=== PATIENT | female | born 1955 | race Caucasian/White ===

== ENCOUNTER 2023-12-06 05:29 | Day surgery (SDC) | payer BC ==
[2023-12-03 13:34] VITALS: BMI 30.7
[2023-12-06] MEDS ORDERED: Bupivacaine PF 0.5% 30 ML VIAL ONE (06:43)
[2023-12-06] MEDS ORDERED: EPINEPHrine 1 MG/ML VIAL ONE (06:43)
[2023-12-06] MEDS ORDERED: Midazolam HCl 2 mg/2 ml Vial ONE (06:52)
[2023-12-06] MEDS ORDERED: PROPOFOL 20 ML ONE (06:52)
[2023-12-06] MEDS ORDERED: Ondansetron PF 4 MG/2 ML Vial ONE (06:52)
[2023-12-06] MEDS ORDERED: Dexamethasone 4 mg/ml Vial ONE (06:52)
[2023-12-06] MEDS ORDERED: Lidocaine 2% PF 5 ML VIAL ONE (06:52)
[2023-12-06] MEDS ORDERED: fentaNYL 50 mcg/mL 1 mL Vial ONE (06:52)
[2023-12-06] MEDS ORDERED: CEFAZOLIN 2 GM VIAL ONE (07:03)
[2023-12-06] MEDS ORDERED: Acetaminophen 500 MG TAB ONE ×2 (07:14→08:16)
[2023-12-06] MEDS ORDERED: Hydrocortisone Sod Succ/PF 100 mg/2 ml Vial ONE (07:39)
[2023-12-06] MEDS ORDERED: PHENYLEPHRINE-NS 100 MCG/ML 10 ML SYRINGE ONE (07:47)
[2023-12-06] MEDS ORDERED: HYDROcodone/Acetaminophen 5/325 mg Tablet PO PRN (08:02)
[2023-12-06] MEDS ORDERED: Acetaminophen 325 MG TAB PO PRN (08:02)
== END 2023-12-06 08:55 | disposition home or self-care (01) ==
LOC: CSHSDC 05:29
PROVIDERS: ATTEND Surgery
PROC: 0JH60WZ Insertion of Totally Implantable Vascular Access Device into Chest Subcutaneous Tissue and Fascia, Open Approach (ICD-10-PCS; principal; 2023-12-06)
DX: C34.91 Malignant neoplasm of unspecified part of right bronchus or lung (principal); I10 Essential (primary) hypertension; K21.9 Gastro-esophageal reflux disease without esophagitis; E78.5 Hyperlipidemia, unspecified; Z91.012 Allergy to eggs; Z90.710 Acquired absence of both cervix and uterus; Z79.899 Other long term (current) drug therapy; Z90.49 Acquired absence of other specified parts of digestive tract; Z88.2 Allergy status to sulfonamides
CPT/HCPCS: 71045; A6258; C1788; J0171; J0665; J1100; J1642; J1720; J2001; J2250; J2405; J2704; J3010